=== PATIENT | female | born 1995 | race Caucasian/White ===

== ENCOUNTER 2020-10-16 18:07 | Emergency (ER) | payer OTHER ==
[2020-10-16 18:14] VITALS: BP 112/60
[2020-10-16 18:28] LABS: HCG UR QUAL NEGATIVE
--- NOTE | 2020-10-16 18:58 | ED Physician Documentation ---
History of Present Illness - Stated complaint Stated Complaint: FEMALE - Chief complaint Chief Complaint: General - History obtained from History obtained from: Patient - History of Present Illness Timing: Today Pain level max: 0 Pain level now: 0 - Additonal information Additional information: 25-year-old female presents to the emergency department stating she had unprotected sexual intercourse 4 days ago. She states that she is here to have an IUD placed to prevent . She states she does not want to take Plan B because of the hormones. She states she is breast-feeding a child. Not currently on any control. 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 She states that she called the [facility] primary care clinic and was directed to the emergency department. Review of Systems Constitutional: denies: Fever GI: denies: Vomiting Skin: denies: Rash Musculoskeletal: denies: Neck pain, Back pain Neurologic: denies: Headache PD PAST MEDICAL HISTORY - Past Medical History Past Medical History: Yes Respiratory: Asthma - Past Surgical History Past Surgical History: Yes HEENT: Rhinoplasty - Present Medications Home Medications: Ambulatory Orders Medication Instructions Recorded Confirmed No Known Home Medications 10/16/20 10/16/20 - Allergies Allergies/Adverse Reactions: Allergies Allergy/AdvReac Type Severity Reaction Status Date / Time ibuprofen Allergy Anaphylaxis Verified 10/16/20 18:14 - Social History Does the pt smoke?: No Smoking Status: Never smoker Does the pt drink ETOH?: No Does the pt have substance abuse?: No - Immunizations Immunizations are current?: Yes PD ED PE NORMAL - Vitals Vital signs reviewed: Yes - General General: Alert and oriented X 3, No acute distress - HEENT HEENT: Moist mucous membranes - Respiratory Respiratory: No respiratory distress - Derm Derm: Warm and dry - Neuro Neuro: Alert and oriented X 3 - Psych Psych: Normal mood, Normal affect Results - Vitals Vitals: Vital Signs - 24 hr 10/16/20 18:12 Temperature 37 C Heart Rate 75 Respiratory 18 Rate Blood Pressure 112/60 O2 Saturation 98 Oxygen O2 Source Room air - Labs Labs: Laboratory Tests 10/16/20 18:19 Urine HCG, Qual NEGATIVE PD MEDICAL DECISION MAKING - ED course Complexity details: considered differential, d/w patient, d/w x ray consultant ED course: Patient informed that we do not place intrauterine devices in the emergency department. Recommend that she follow-up with gynecology. I did contact gynecology on-call to see if they could see her quickly, Dr. Howe Recommends calling the clinic in the morning to see if they can squeeze her in tomorrow. Patient counseled regarding signs and symptoms for which I believe and urgent re-evaluation would be necessary. Patient with good understanding of and agreement to plan and is comfortable going home at this time This document was made in part using voice recognition software. While efforts are made to proofread this document, sound alike and grammatical errors may occur. Departure - Departure Disposition: 01 Home, Self Care Clinical Impression: Encounter for medical screening examination Condition: Good Instructions: ED Screening Exam Medical Nonurgent Follow-Up: Tarun Howe MD [Provider Admit Priv/Credential] - Tarun Howe MD [Provider Admit Priv/Credential] - Comments: I spoke with Dr. Carley calix. He said you can call the clinic in the morning and see if they can fit you in for the paragard IUD. This can be with any provider at the gynecology clinic Discharge Date/Time: 10/16/20 19:06
== END 2020-10-16 19:06 | disposition home or self-care (01) ==
LOC: ED 18:07
DX: Z30.8 Encounter for other contraceptive management (principal)
CPT/HCPCS: 36415; 81025; 99282; 99283

== ENCOUNTER 2021-10-23 19:05 | Emergency (ER) | payer MEDICAID, OTHER ==
--- NOTE | 2021-10-23 21:13 | ED Physician Documentation ---
History of Present Illness - Stated complaint Stated Complaint: ASTHMA/MEDICATION REFILL - Chief complaint Chief Complaint: Resp - Additonal information Additional information: 26-year-old female presents emergency department requesting a refill of her asthma inhaler. She called the nurse hotline who told her to come to the ER. She is here with her [id number] son who has fevers and vomiting. Review of Systems Constitutional: reports: Reviewed and negative Nose: reports: Reviewed and negative Throat: reports: Reviewed and negative Cardiac: reports: Reviewed and negative Respiratory: reports: Reviewed and negative GI: reports: Reviewed and negative : reports: Reviewed and negative Skin: reports: Reviewed and negative PD PAST MEDICAL HISTORY - Past Medical History Respiratory: Asthma - Past Surgical History Past Surgical History: Yes HEENT: Rhinoplasty - Present Medications Home Medications: Ambulatory Orders Medication Instructions Recorded Confirmed Albuterol Sulf [Ventolin Hfa 1 - 2 puffs INH Q4HR PRN #1 inhaler 10/23/21 Inhaler] - Allergies Allergies/Adverse Reactions: Allergies Allergy/AdvReac Type Severity Reaction Status Date / Time ibuprofen Allergy Anaphylaxis Verified 10/23/21 19:29 - Social History Does the pt smoke?: No Smoking Status: Never smoker Does the pt drink ETOH?: No Does the pt have substance abuse?: No - Immunizations Immunizations are current?: Yes PD ED PE NORMAL - General General: Alert and oriented X 3, No acute distress - HEENT HEENT: PERRL - Cardiac Cardiac: RRR, No murmur - Respiratory Respiratory: No respiratory distress, Clear bilaterally - Abdomen Abdomen: Normal bowel sounds, Soft, Non tender, Non distended - Back Back: No CVA TTP - Derm Derm: Normal color, Warm and dry - Extremities Extremities: No deformity, No tenderness to palpate, Normal ROM s pain - Neuro Neuro: Alert and oriented X 3, 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 This was sent to the [facility] in [place]. She has no respiratory symptoms at this time. Departure - Departure Disposition: 01 Home, Self Care Clinical Impression: Medication refill Condition: Stable Record reviewed to determine appropriate education?: Yes Prescriptions: Albuterol Sulf [Ventolin Hfa Inhaler] 1 - 2 puffs INH Q4HR PRN #1 inhaler PRN Reason: Shortness Of Air/Wheezing Comments: Elaine, your albuterol was refilled and sent to the [facility] in [place].
[2021-10-23 23:19] VITALS: BP 119/76
== END 2021-10-23 23:21 | disposition home or self-care (01) ==
LOC: ED 19:05
DX: Z76.0 Encounter for issue of repeat prescription (principal)
CPT/HCPCS: 99281

== ENCOUNTER 2021-11-09 08:00 | Outpatient (CLI) | payer OTHER, MEDICAID ==
[2021-11-09 21:00] LABS: BASOPHILS % (AUTO) 0.4 %; EOSINOPHILS # (AUTO) 0.2 10^3/uL (0.0-0.7); EOSINOPHILS % (AUTO) 2.2 %; HCT - HEMATOCRIT 39.1 % (37.0-47.0); HGB - HEMOGLOBIN 12.8 g/dL (12.0-16.0); LYMPHOCYTES # (AUTO) 2.3 10^3/uL (1.5-3.5); LYMPHOCYTES % (AUTO) 33.7 %; MEAN CORPUSCULAR HEMOGLOBIN 30.5 pg (27.0-31.0); MEAN CORPUSCULAR HGB CONC 32.7 g/dL (32.0-36.0); MEAN CORPUSCULAR VOLUME 93.3 fL (81.0-99.0); MEAN PLATELET VOLUME 9.5 fL (7.9-10.8); MONOCYTES # (AUTO) 0.4 10^3/uL (0.0-1.0); MONOCYTES % (AUTO) 6.4 %; NEUTROPHILS # (AUTO) 3.9 10^3/uL (1.5-6.6); NEUTROPHILS % (AUTO) 57.2 %; PLT - PLATELET COUNT 233 10^3/uL (130-450); RED BLOOD COUNT 4.19 10^6/uL (4.20-5.40); WHITE BLOOD COUNT 6.8 x10^3/uL (4.8-10.8)
[2021-11-09 21:18] LABS: ALBUMIN 4.5 g/dL (3.2-5.5); ALBUMIN/GLOBULIN RATIO 1.4 (1.0-2.2); ALKALINE PHOSPHATASE 60 IU/L (42-121); ALT ALANINE AMINOTRANSFERASE 16 IU/L (10-60); AST ASPARTATE AMINOTRANSFERASE 19 IU/L (10-42); BILIRUBIN,TOTAL 0.7 mg/dL (0.2-1.0); BUN - BLOOD UREA NITROGEN 16 mg/dL (6-20); CALCIUM 8.6 mg/dL (8.5-10.3); CARBON DIOXIDE - CO2 29 mmol/L (21-32); CHLORIDE 99 mmol/L (101-111); CHOLESTEROL 170 mg/dL; CREATININE 0.5 mg/dL (0.4-1.0); GFR - MDRD 147 (>89); GLUCOSE 103 mg/dL (70-100); HDL CHOLESTEROL 87 mg/dL; SODIUM 135 mmol/L (135-145); TOTAL PROTEIN 7.7 g/dL (6.7-8.2); TRIGLYCERIDES 39 mg/dL
[2021-11-09 21:29] LABS: THYROID STIMULATING HORMONE 1.28 uIU/mL (0.34-5.60)
== END 2021-11-09 23:59 | disposition home or self-care (01) ==
LOC: LAB.N 08:00
PROVIDERS: ATTEND Family Medicine
DX: R53.83 Other fatigue (principal)
CPT/HCPCS: 36415; 80053; 80061; 82306; 83721; 84443; 85025

== ENCOUNTER 2022-02-06 06:49 | Outpatient (CLI) | payer OTHER | END 2022-02-06 06:50 | disposition EMS.NT | LOC: EMS 06:49 | DX: R10.9 Unspecified abdominal pain (principal); R11.2 Nausea with vomiting, unspecified ==

== ENCOUNTER 2022-02-06 08:11 | Emergency (ER) | payer MEDICAID, OTHER ==
[2022-02-06] MEDS ORDERED: ONDANSETRON ODT 4 MG TABLET TL STA (08:31)
[2022-02-06 08:45] LABS: BASOPHILS % (AUTO) 0.3 %; EOSINOPHILS % (AUTO) 0.3 %; HCT - HEMATOCRIT 39.7 % (37.0-47.0); LYMPHOCYTES # (AUTO) 0.5 10^3/uL (1.5-3.5); LYMPHOCYTES % (AUTO) 4.6 %; MEAN CORPUSCULAR HEMOGLOBIN 29.7 pg (27.0-31.0); MEAN CORPUSCULAR HGB CONC 32.7 g/dL (32.0-36.0); MEAN CORPUSCULAR VOLUME 90.8 fL (81.0-99.0); MEAN PLATELET VOLUME 8.7 fL (7.9-10.8); MONOCYTES # (AUTO) 0.4 10^3/uL (0.0-1.0); MONOCYTES % (AUTO) 4.2 %; NEUTROPHILS # (AUTO) 9.1 10^3/uL (1.5-6.6); NEUTROPHILS % (AUTO) 90.4 %; PLT - PLATELET COUNT 197 10^3/uL (130-450); RED BLOOD COUNT 4.37 10^6/uL (4.20-5.40); RED CELL DISTRIBUTION WIDTH 12.3 % (12.0-15.0); WHITE BLOOD COUNT 10.1 x10^3/uL (4.8-10.8)
[2022-02-06 08:59] LABS: ALBUMIN 4.6 g/dL (3.2-5.5); ALBUMIN/GLOBULIN RATIO 1.2 (1.0-2.2); BILIRUBIN,TOTAL 1.1 mg/dL (0.2-1.0); CALCIUM 8.4 mg/dL (8.5-10.3); CREATININE 0.6 mg/dL (0.4-1.0); POTASSIUM 3.7 mmol/L (3.5-5.0); TOTAL PROTEIN 8.4 g/dL (6.7-8.2)
[2022-02-06 09:10] LABS: BILIRUBIN,URINE NEGATIVE (NEGATIVE); GLUCOSE, URINE (UA) NEGATIVE (NEGATIVE); KETONES,URINE (UA) >=80 mg/dL (NEGATIVE); LEUKOCYTE ESTERASE, URINE NEGATIVE (NEGATIVE); NITRITE,URINE NEGATIVE (NEGATIVE); OCCULT BLOOD,URINE NEGATIVE (NEGATIVE); PH,URINE 6.5 PH (5.0-7.5); PROTEIN,URINE 30 mg/dL (NEGATIVE); UROBILINOGEN,URINE 0.2 (NORMAL) E.U./dL (NORMAL)
[2022-02-06 09:17] LABS: CLARITY,URINE CLEAR (CLEAR)
[2022-02-06 09:18] LABS: HCG UR QUAL NEGATIVE
[2022-02-06 09:21] LABS: BACTERIA,URINE Few /HPF (None Seen); RBC,URINE 0-5 /HPF (0-5); SQUAMOUS EPITHELIAL CELL,UR FEW Squamous (<= Few); WBC,URINE 0-3 /HPF (0-5)
--- NOTE | 2022-02-06 10:14 | ED Physician Documentation ---
PD HPI NVD - Stated complaint Stated Complaint: VOMITING - Chief complaint Chief Complaint: Abd Pain - History obtained from History obtained from: Patient - History of Present Illness Timing - onset: Last night, Yesterday Timing - duration: Days (1) Timing - details: Abrupt onset, Still present Associated symptoms: Abdominal pain (diffuse cramping intermittent pains with vomiting episodes.). No: Fever Contributing factors: Sick contact (her son with vomiting and diarrhea started 2 days ago, and is moderately improved. with same symptoms since overnight as well.) Improved by: No: Vomiting (having forceful heaving emesis.) Worsened by: Eating Similar symptoms before: Has not had sx before Recently seen: Not recently seen Review of Systems Constitutional: denies: Fever, Chills Nose: denies: Rhinorrhea / runny nose, Congestion Throat: denies: Sore throat Respiratory: denies: Cough GI: reports: Abdominal Pain (cramping around time of emesis, not constant.), Nausea, Vomiting. denies: Diarrhea, Hematemesis Neurologic: reports: Generalized weakness. denies: Near syncope PD PAST MEDICAL HISTORY - Past Medical History Respiratory: Asthma - Past Surgical History Past Surgical History: Yes HEENT: Rhinoplasty - Present Medications Home Medications: Ambulatory Orders Medication Instructions Recorded Confirmed Albuterol Sulf [Ventolin Hfa 1 - 2 puffs INH Q4HR PRN #1 inhaler 10/23/21 Inhaler] Beclomethasone 80 Mcg [Qvar 80] 2 puffs INH BID 10/25/21 10/25/21 Beclomethasone 80 Mcg [Qvar 80] 100 puffs INH BID #1 unit 10/25/21 Loperamide HCl [Imodium A-D] 2 mg PO Q6H PRN #12 tablet 02/06/22 Ondansetron Odt [Zofran] 4 mg TL Q6H PRN #10 tablet 02/06/22 Promethazine Supp [Phenergan Supp] 25 mg AR Q6H PRN #8 supp 02/06/22 Promethazine [Phenergan] 25 mg PO Q6H PRN #10 tab 02/06/22 - Allergies Allergies/Adverse Reactions: Allergies Allergy/AdvReac Type Severity Reaction Status Date / Time ibuprofen Allergy Anaphylaxis Verified 02/06/22 08:29 - Social History Does the pt smoke?: No Smoking Status: Never smoker Does the pt drink ETOH?: No Does the pt have substance abuse?: No - Immunizations Immunizations are current?: Yes PD ED PE NORMAL - Vitals Vital signs reviewed: Yes - General General: Alert and oriented X 3, No acute distress, Well developed/nourished - Neck Neck: Supple, no meningeal sign, No adenopathy - Cardiac Cardiac: RRR, No murmur - Respiratory Respiratory: Clear bilaterally - Abdomen Abdomen: Normal bowel sounds, Soft, Non distended, Other (Minimally tender in the epigastric area with out guarding or percussion tenderness.) - Derm Derm: Normal color, Warm and dry - Neuro Neuro: Alert and oriented X 3, No motor deficit, Normal speech Results - Vitals Vitals: Vital Signs - 24 hr 02/06/22 12:54 Temperature 36.6 C Heart Rate 104 H Respiratory 17 Rate Blood Pressure 110/58 L O2 Saturation 100 Oxygen O2 Source Room air - Labs Labs: Laboratory Tests 02/06/22 02/06/22 02/06/22 08:45 08:45 08:46 WBC 10.1 RBC 4.37 Hgb 13.0 Hct 39.7 MCV 90.8 MCH 29.7 MCHC 32.7 RDW 12.3 Plt Count 197 MPV 8.7 Neut # (Auto) 9.1 H Lymph # (Auto) 0.5 L [place] # (Auto) 0.4 Eos # (Auto) 0.0 Baso # (Auto) 0.0 Absolute Nucleated RBC 0.00 Nucleated RBC % 0.0 Sodium 138 Potassium 3.7 Chloride 101 Carbon Dioxide 25 Anion Gap 12.0 BUN 20 Creatinine 0.6 Estimated GFR (MDRD) 119 Glucose 126 H Calcium 8.4 L Total Bilirubin 1.1 H AST 25 ALT 20 Alkaline Phosphatase 62 Total Protein 8.4 H Albumin 4.6 Globulin 3.8 Albumin/Globulin Ratio 1.2 Lipase 35 Urine Color YELLOW Urine Clarity CLEAR Urine pH 6.5 Ur Specific [place] 1.025 Urine Protein 30 H Urine Glucose (UA) NEGATIVE Urine Ketones >=80 H Urine Occult Blood NEGATIVE Urine Nitrite NEGATIVE Urine Bilirubin NEGATIVE Urine Urobilinogen 0.2 (NORMAL) Ur Leukocyte Esterase NEGATIVE Urine RBC 0-5 Urine WBC 0-3 Ur Squamous Epith Cells FEW Squamous Urine Bacteria Few Ur Microscopic Review INDICATED Urine Culture Comments NOT INDICATED Urine HCG, Qual NEGATIVE PD MEDICAL DECISION MAKING - ED course Complexity details: re-evaluated patient (She is not having further emesis here. Abdomen is nonfocal he tender with just some in the epigastric. She is able to take sips of fluids here in the ER. Does not seem to need IV fluids.), considered differential (Nausea and vomiting without much diarrhea as yet. Her son had similar symptoms started in 3 days ago. with similar. Presumed viral gastroenteritis.), d/w patient Departure - Departure Disposition: 01 Home, Self Care Clinical Impression: Nausea vomiting and diarrhea Condition: Stable Record reviewed to determine appropriate education?: Yes Instructions: ED Gastroenteritis Viral Prescriptions: Loperamide HCl [Imodium A-D] 2 mg PO Q6H PRN #12 tablet PRN Reason: Diarrhea Promethazine [Phenergan] 25 mg PO Q6H PRN #10 tab PRN Reason: Nausea / Vomiting Promethazine Supp [Phenergan Supp] 25 mg AR Q6H PRN #8 supp PRN Reason: Nausea / Vomiting Ondansetron Odt [Zofran] 4 mg TL Q6H PRN #10 tablet PRN Reason: Nausea / Vomiting Comments: Small frequent fluids and bland food initially. Starches such as rice and pastas are easily absorbed and digested. Zofran if needed for nausea. If that does not work then promethazine either tablet or suppository to help with the vomiting. You likely will develop some diarrhea and you could use Imodium if needed for that. Tylenol every 4-6 hours if needed for fevers or pains. This is most likely a viral illness and commonly will last for 2 to 3 days and then improved. I transmitted your prescriptions to [facility] pharmacy in [place]. Discharge Date/Time: 02/06/22 12:58
[2022-02-06] MEDS ORDERED: PROMETHAZINE 25 MG/1 ML VIAL IM STA (11:27)
[2022-02-06] MEDS ORDERED: ACETAMINOPHEN 325 MG TABLET PO STA (11:28)
[2022-02-06 12:55] VITALS: BP 110/58
== END 2022-02-06 12:58 | disposition home or self-care (01) ==
LOC: ED 08:11
DX: R11.2 Nausea with vomiting, unspecified (principal); R19.7 Diarrhea, unspecified
CPT/HCPCS: 36415; 80053; 81001; 81025; 83690; 85025; 99282; 99283; A9270; Q0162; 81003; 87086

== ENCOUNTER 2022-04-12 18:12 | Outpatient (CLI) | payer OTHER ==
[2022-04-12 21:07] LABS: BASOPHILS # (AUTO) 0.1 10^3/uL (0.0-0.1); BASOPHILS % (AUTO) 0.8 %; EOSINOPHILS # (AUTO) 0.3 10^3/uL (0.0-0.7); EOSINOPHILS % (AUTO) 4.8 %; HCT - HEMATOCRIT 35.6 % (37.0-47.0); HGB - HEMOGLOBIN 11.7 g/dL (12.0-16.0); LYMPHOCYTES # (AUTO) 2.6 10^3/uL (1.5-3.5); LYMPHOCYTES % (AUTO) 41.1 %; MEAN CORPUSCULAR HEMOGLOBIN 29.5 pg (27.0-31.0); MEAN CORPUSCULAR HGB CONC 32.9 g/dL (32.0-36.0); MEAN CORPUSCULAR VOLUME 89.9 fL (81.0-99.0); MEAN PLATELET VOLUME 9.6 fL (7.9-10.8); MONOCYTES # (AUTO) 0.4 10^3/uL (0.0-1.0); MONOCYTES % (AUTO) 5.8 %; NEUTROPHILS # (AUTO) 2.9 10^3/uL (1.5-6.6); NEUTROPHILS % (AUTO) 47.3 %; PLT - PLATELET COUNT 216 10^3/uL (130-450); RED BLOOD COUNT 3.96 10^6/uL (4.20-5.40); RED CELL DISTRIBUTION WIDTH 12.9 % (12.0-15.0); WHITE BLOOD COUNT 6.2 x10^3/uL (4.8-10.8)
[2022-04-12 21:30] LABS: ALBUMIN 4.3 g/dL (3.2-5.5); ALBUMIN/GLOBULIN RATIO 1.3 (1.0-2.2); BILIRUBIN,TOTAL 0.6 mg/dL (0.2-1.0); CALCIUM 9.1 mg/dL (8.5-10.3); CREATININE 0.6 mg/dL (0.4-1.0); TOTAL PROTEIN 7.5 g/dL (6.7-8.2)
[2022-04-12 21:45] LABS: T4 (THYROXINE) 5.96 ug/dL (6.09-12.23)
[2022-04-12 21:48] LABS: THYROID STIMULATING HORMONE 1.08 uIU/mL (0.34-5.60)
[2022-04-12 21:49] LABS: FREE T3 3.02 pg/mL (2.5-3.9)
[2022-04-12 21:50] LABS: FREE T4 (FREE THYROXINE) 0.95 ng/dL (0.58-1.64)
== END 2022-04-12 18:13 | disposition home or self-care (01) ==
LOC: LAB.N 18:12
PROVIDERS: ATTEND Nurse Practitioner
DX: E05.00 Thyrotoxicosis with diffuse goiter without thyrotoxic crisis or storm (principal)
CPT/HCPCS: 36415; 80053; 81599; 84436; 84439; 84443; 84481; 85025; 86800

== ENCOUNTER 2022-08-12 14:43 | Emergency (ER) | payer OTHER ==
--- NOTE | 2022-08-12 15:11 | XRAY Report ---
PROCEDURE: Chest 1 View X-Ray INDICATIONS: Chest pain TECHNIQUE: One view of the chest was acquired. COMPARISON: None. FINDINGS: Surgical changes and devices: None. Lungs and pleura: No pleural effusions or pneumothorax. Lungs are clear. Mediastinum: Mediastinal contours appear normal. Heart size is normal. Bones and chest wall: No suspicious bony lesions. Overlying soft tissues appear unremarkable. IMPRESSION: No evidence acute pulmonary process. Reviewed by: Geovanni Lopez MD on 08/12/2022 3:10 PM PST Approved by: Geovanni Lopez MD on 08/12/2022 3:10 PM PST Station ID: [id number]
[2022-08-12 15:12] LABS: BASOPHILS # (AUTO) 0.1 10^3/uL (0.0-0.1); BASOPHILS % (AUTO) 0.7 %; EOSINOPHILS # (AUTO) 0.2 10^3/uL (0.0-0.7); EOSINOPHILS % (AUTO) 2.3 %; HCT - HEMATOCRIT 36.8 % (37.0-47.0); HGB - HEMOGLOBIN 11.6 g/dL (12.0-16.0); LYMPHOCYTES # (AUTO) 2.1 10^3/uL (1.5-3.5); LYMPHOCYTES % (AUTO) 29.1 %; MEAN CORPUSCULAR HEMOGLOBIN 27.6 pg (27.0-31.0); MEAN CORPUSCULAR HGB CONC 31.5 g/dL (32.0-36.0); MEAN CORPUSCULAR VOLUME 87.4 fL (81.0-99.0); MEAN PLATELET VOLUME 8.8 fL (7.9-10.8); MONOCYTES # (AUTO) 0.5 10^3/uL (0.0-1.0); NEUTROPHILS # (AUTO) 4.4 10^3/uL (1.5-6.6); NEUTROPHILS % (AUTO) 60.8 %; PLT - PLATELET COUNT 226 10^3/uL (130-450); RED BLOOD COUNT 4.21 10^6/uL (4.20-5.40); RED CELL DISTRIBUTION WIDTH 13.2 % (12.0-15.0); WHITE BLOOD COUNT 7.3 x10^3/uL (4.8-10.8)
[2022-08-12 15:30] LABS: ALBUMIN 4.2 g/dL (3.2-5.5); ALBUMIN/GLOBULIN RATIO 1.1 (1.0-2.2); BILIRUBIN,TOTAL 0.5 mg/dL (0.2-1.0); CALCIUM 8.9 mg/dL (8.5-10.3); CREATININE 0.5 mg/dL (0.4-1.0); POTASSIUM 3.9 mmol/L (3.5-5.0)
[2022-08-12 17:14] VITALS: BP 111/43
[2022-08-12] MEDS ORDERED: MELOXICAM 7.5 MG TABLET PO STA (17:33)
--- NOTE | 2022-08-12 17:36 | ED Physician Documentation ---
History of Present Illness - Stated complaint Stated Complaint: JAW/NECK/CHEST PX - Chief complaint Chief Complaint: Cardiac - History obtained from History obtained from: Patient - History of Present Illness Timing: How many days ago (4) Pain level max: 3 Pain level now: 2 - Additonal information Additional information: Patient states that she had an argument with her about 4 days ago. She states after the argument she had left-sided chest pain to the left arm and left neck. She states that the pain has gradually resolved over the last 2 days. She states that she still has some left-sided neck pain under the jaw. She is taking Tylenol without relief. She feels like there might be some swelling. No skin changes. Nothing seems to make it better or worse. No fevers. No chills. No neck or back pain. She states that the left-sided chest pain was sharp. She states she feels like her body was under too much stress. Review of Systems Constitutional: denies: Fever, Chills GI: denies: Vomiting, Diarrhea Skin: denies: Rash Musculoskeletal: denies: Neck pain, Back pain Neurologic: denies: Headache PD PAST MEDICAL HISTORY - Past Medical History Past Medical History: Yes Respiratory: Asthma Endocrine/Autoimmune: Other - Past Surgical History Past Surgical History: Yes HEENT: Rhinoplasty - Present Medications Home Medications: Ambulatory Orders Medication Instructions Recorded Confirmed Albuterol Sulf [Ventolin Hfa 1 - 2 puffs INH Q4HR PRN #1 inhaler 10/23/21 Inhaler] Beclomethasone 80 Mcg [Qvar 80] 2 puffs INH BID 10/25/21 10/25/21 Beclomethasone 80 Mcg [Qvar 80] 100 puffs INH BID #1 unit 10/25/21 Loperamide HCl [Imodium A-D] 2 mg PO Q6H PRN #12 tablet 02/06/22 Ondansetron Odt [Zofran] 4 mg TL Q6H PRN #10 tablet 02/06/22 Promethazine Supp [Phenergan Supp] 25 mg [place] Q6H PRN #8 supp 02/06/22 Promethazine [Phenergan] 25 mg PO Q6H PRN #10 tab 02/06/22 - Allergies Allergies/Adverse Reactions: Allergies Allergy/AdvReac Type Severity Reaction Status Date / Time ibuprofen Allergy Anaphylaxis Verified 08/12/22 14:48 - Social History Does the pt smoke?: No Smoking Status: Never smoker Does the pt drink ETOH?: No Does the pt have substance abuse?: No - Immunizations Immunizations are current?: Yes PD ED PE NORMAL - Vitals Vital signs reviewed: Yes - General General: Alert and oriented X 3, No acute distress - HEENT HEENT: PERRL, Moist mucous membranes, Pharynx benign - Neck Neck: Supple, no meningeal sign, No adenopathy, Thyroid normal, No JVD, No bruit - Cardiac Cardiac: RRR, Strong equal pulses - Respiratory Respiratory: No respiratory distress, Clear bilaterally - Abdomen Abdomen: Soft, Non tender, Non distended - Derm Derm: Warm and dry - Extremities Extremities: No edema, No calf tenderness / cord - Neuro Neuro: Alert and oriented X 3 - Psych Psych: Normal mood, Normal affect Results - Vitals Vitals: Vital Signs - 24 hr 08/12/22 08/12/22 14:48 17:13 Temperature 36.5 C Heart Rate 78 88 Respiratory 16 16 Rate Blood Pressure 129/51 L 111/43 L O2 Saturation 100 100 Oxygen O2 Source Room air - EKG (time done) 1450 Rate: Rate (enter#) (76) Rhythm: NSR [place]: Normal Intervals: Normal TN QRS: Normal Ischemia: Normal ST segments - Labs Labs: Laboratory Tests 08/12/22 08/12/22 08/12/22 15:06 15:06 15:06 WBC 7.3 RBC 4.21 Hgb 11.6 L Hct 36.8 L MCV 87.4 MCH 27.6 MCHC 31.5 L RDW 13.2 Plt Count 226 MPV 8.8 Neut # (Auto) 4.4 Lymph # (Auto) 2.1 [place] # (Auto) 0.5 Eos # (Auto) 0.2 Baso # (Auto) 0.1 Absolute Nucleated RBC 0.00 Nucleated RBC % 0.0 Sodium 135 Potassium 3.9 Chloride 102 Carbon Dioxide 27 Anion Gap 6.0 BUN 12 Creatinine 0.5 Estimated GFR (MDRD) 146 Glucose 97 Calcium 8.9 Total Bilirubin 0.5 AST 17 ALT 12 Alkaline Phosphatase 45 Troponin I High Sens < 2.3 L Total Protein 8.0 Albumin 4.2 Globulin 3.8 Albumin/Globulin Ratio 1.1 Lipase 46 TSH Free T4 08/12/22 15:09 WBC RBC Hgb Hct MCV MCH MCHC RDW Plt Count MPV Neut # (Auto) Lymph # (Auto) [place] # (Auto) Eos # (Auto) Baso # (Auto) Absolute Nucleated RBC Nucleated RBC % Sodium Potassium Chloride Carbon Dioxide Anion Gap BUN Creatinine Estimated GFR (MDRD) Glucose Calcium Total Bilirubin AST ALT Alkaline Phosphatase Troponin I High Sens Total Protein Albumin Globulin Albumin/Globulin Ratio Lipase TSH 2.79 Free T4 0.72 - Rads (name of study) cxr Radiology: Final report received, EMP read contemporaneously, See rad report (no acute abnormalities) PD MEDICAL DECISION MAKING - ED course Complexity details: reviewed results, re-evaluated patient, considered differential (No ST elevation NE, no aortic dissection, no PE, no tension pneumothorax, no aortic aneurysm), d/w patient ED course: 27-year-old female complains of chest pain after an argument with her several days ago. The chest pain is since resolved. No acute findings on EKG, laboratory testing, chest x-ray. Also complains of neck pain, left-sided submandibular. Normal intraoral exam. Normal external examination of the neck. Offered a soft tissue CT of the neck to evaluate for any masses, cyst, abscess, or tumors. Patient refuses this. Patient would like to try pain medicine at home for a few days, she states that she can take Motrin and Tylenol. She will follow-up with her doctor if it fails to improve. Patient counseled regarding signs and symptoms for which I believe and urgent re- evaluation would be necessary. Patient with good understanding of and agreement to plan and is comfortable going home at this time This document was made in part using voice recognition software. While efforts are made to proofread this document, sound alike and grammatical errors may occur. There is no visible swelling to the neck or face. No lymphadenopathy. Departure - Departure Disposition: 01 Home, Self Care Clinical Impression: Atypical chest pain, Neck pain Condition: Good Instructions: ED Chest Pain Atypical Unkn Cause, ED Neck Pain No Trauma Follow-Up: Your,doctor in 1 week [Other] Comments: Please follow-up with your doctor for further care. The cause of your symptoms today is unclear. It was recommended that you have a CT scan of your neck, you have declined this. Please follow-up with your doctor for further testing. Would recommend a CT soft tissue neck with contrast if your symptoms progress or do not improve as expected. Discharge Date/Time: 08/12/22 17:49
[2022-08-12 17:54] LABS: THYROID STIMULATING HORMONE 2.79 uIU/mL (0.34-5.60)
[2022-08-12 17:56] LABS: FREE T4 (FREE THYROXINE) 0.72 ng/dL (0.58-1.64)
== END 2022-08-12 17:49 | disposition home or self-care (01) ==
LOC: ED 14:43
DX: R07.89 Other chest pain (principal); M54.2 Cervicalgia
CPT/HCPCS: 36415; 71045; 80053; 83690; 84439; 84443; 84484; 85025; 93005; 99284; A9270

== ENCOUNTER 2022-11-14 08:00 | Outpatient (CLI) | payer OTHER ==
[2022-11-15 11:10] LABS: HSV 1 IGG TYPE SPEC <0.91 index (0.00-0.90); HSV 2 IGG TYPE SPEC <0.91 index (0.00-0.90)
== END 2022-11-14 23:59 | disposition home or self-care (01) ==
LOC: LAB.N 08:00
PROVIDERS: ATTEND Family Medicine
DX: K13.0 Diseases of lips (principal)
CPT/HCPCS: 36415; 86695; 86696

== ENCOUNTER 2023-04-30 08:59 | Emergency (ER) | payer OTHER ==
[2023-04-30 09:35] LABS: BILIRUBIN,URINE NEGATIVE (NEGATIVE); GLUCOSE, URINE (UA) NEGATIVE (NEGATIVE); KETONES,URINE (UA) TRACE mg/dL (NEGATIVE); LEUKOCYTE ESTERASE, URINE NEGATIVE (NEGATIVE); NITRITE,URINE NEGATIVE (NEGATIVE); OCCULT BLOOD,URINE MODERATE (NEGATIVE); PH,URINE 5.5 PH (5.0-7.5); PROTEIN,URINE NEGATIVE (NEGATIVE); UROBILINOGEN,URINE 0.2 (NORMAL) E.U./dL (NORMAL)
[2023-04-30 09:35] LABS: BASOPHILS # (AUTO) 0.1 10^3/uL (0.0-0.1); EOSINOPHILS # (AUTO) 0.1 10^3/uL (0.0-0.7); EOSINOPHILS % (AUTO) 2.5 %; HCT - HEMATOCRIT 33.5 % (37.0-47.0); HGB - HEMOGLOBIN 10.2 g/dL (12.0-16.0); LYMPHOCYTES # (AUTO) 2.1 10^3/uL (1.5-3.5); LYMPHOCYTES % (AUTO) 39.7 %; MEAN CORPUSCULAR HEMOGLOBIN 24.6 pg (27.0-31.0); MEAN CORPUSCULAR HGB CONC 30.4 g/dL (32.0-36.0); MEAN CORPUSCULAR VOLUME 80.9 fL (81.0-99.0); MONOCYTES # (AUTO) 0.4 10^3/uL (0.0-1.0); MONOCYTES % (AUTO) 8.1 %; NEUTROPHILS # (AUTO) 2.5 10^3/uL (1.5-6.6); NEUTROPHILS % (AUTO) 48.5 %; PLT - PLATELET COUNT 204 10^3/uL (130-450); RED BLOOD COUNT 4.14 10^6/uL (4.20-5.40); RED CELL DISTRIBUTION WIDTH 14.2 % (12.0-15.0); WHITE BLOOD COUNT 5.2 x10^3/uL (4.8-10.8)
[2023-04-30 09:38] LABS: CLARITY,URINE CLEAR (CLEAR); HCG UR QUAL NEGATIVE
[2023-04-30 09:47] LABS: BACTERIA,URINE Few /HPF (None Seen); RBC,URINE 0-5 /HPF (0-5); SQUAMOUS EPITHELIAL CELL,UR MOD Squamous (<= Few); WBC,URINE 0-3 /HPF (0-5)
[2023-04-30 09:57] LABS: ALBUMIN 4.4 g/dL (3.2-5.5); ALBUMIN/GLOBULIN RATIO 1.4 (1.0-2.2); BILIRUBIN,TOTAL 0.5 mg/dL (0.2-1.0); CALCIUM 9.1 mg/dL (8.5-10.3); CREATININE 0.6 mg/dL (0.6-1.3); POTASSIUM 3.5 mmol/L (3.5-4.5); TOTAL PROTEIN 7.6 g/dL (6.4-8.9)
--- NOTE | 2023-04-30 10:26 | ED Physician Documentation ---
PD HPI FEMALE - Stated complaint Stated Complaint: LT ABD PX - Chief complaint Chief Complaint: Abd Pain - History obtained from History obtained from: Patient - History of Present Illness Timing - onset: How many days ago (5) Timing - duration: Days (5) Timing - details: Gradual onset, Still present, Waxing and waning Associated symptoms: Pelvic pain (left lower abd/suprapubic area. Has had some vaginal brown discharge/bleeding, no dysuria, and normal BMs.), Vaginal discharge (brownish small amount without malodor.). No: Fever, Vaginal bleeding Contributing factors: IUD OB-MANAGER MANAGEMENT History: Prior vag delivery Similar symptoms before: Has not had sx before Recently seen: Not recently seen Review of Systems Constitutional: denies: Fever, Chills, Myalgias : reports: Discharge (mild brownish). denies: Dysuria, Frequency, Vaginal bleeding Skin: denies: Rash, Lesions PD PAST MEDICAL HISTORY - Past Medical History Respiratory: Asthma Endocrine/Autoimmune: Other - Past Surgical History Past Surgical History: Yes HEENT: Rhinoplasty - Present Medications Home Medications: Ambulatory Orders Medication Instructions Recorded Confirmed Albuterol Sulf [Ventolin Hfa 1 - 2 puffs INH Q4HR PRN #1 inhaler 10/23/21 Inhaler] Beclomethasone 80 Mcg [Qvar 80] 2 puffs INH BID 10/25/21 10/25/21 Beclomethasone 80 Mcg [Qvar 80] 100 puffs INH BID #1 unit 10/25/21 Loperamide HCl [Imodium A-D] 2 mg PO Q6H PRN #12 tablet 02/06/22 Ondansetron Odt [Zofran] 4 mg TL Q6H PRN #10 tablet 02/06/22 Promethazine Supp [Phenergan Supp] 25 mg DC Q6H PRN #8 supp 02/06/22 Promethazine [Phenergan] 25 mg PO Q6H PRN #10 tab 02/06/22 - Allergies Allergies/Adverse Reactions: Allergies Allergy/AdvReac Type Severity Reaction Status Date / Time ibuprofen Allergy Anaphylaxis Verified 04/30/23 09:19 - Social History Does the pt smoke?: No Smoking Status: Never smoker Does the pt drink ETOH?: No Does the pt have substance abuse?: No - Immunizations Immunizations are current?: Yes PD ED PE NORMAL - Vitals Vital signs reviewed: Yes - General General: Alert and oriented X 3, No acute distress, Well developed/nourished - Cardiac Cardiac: RRR, No murmur - Respiratory Respiratory: Clear bilaterally - Abdomen Abdomen: Normal bowel sounds, Soft, Non distended, No organomegaly, Other (tender LLQ just suprapubic with mild local guarding but no perrcussion nor rebound tenderness. No inguinal nodes nor hernia. ) - Female Female : Deferred (had her do self-swab for PCR test. ) - Derm Derm: Normal color, Warm and dry Results - Vitals Vitals: Vital Signs - 24 hr 04/30/23 04/30/23 04/30/23 09:16 11:19 11:22 Temperature 36.4 C L Heart Rate 78 72 75 Respiratory 16 16 18 Rate Blood Pressure 122/60 102/61 O2 Saturation 99 100 100 04/30/23 04/30/23 04/30/23 11:31 12:17 12:54 Temperature Heart Rate Respiratory 18 16 Rate Blood Pressure 102/46 L O2 Saturation 04/30/23 04/30/23 12:55 13:00 Temperature 36.5 C 36.5 C Heart Rate 70 68 Respiratory 16 Rate Blood Pressure 111/61 110/62 O2 Saturation 100 99 Oxygen O2 Source Room air - Labs Labs: Laboratory Tests 04/30/23 04/30/23 04/30/23 09:15 09:28 09:28 WBC 5.2 RBC 4.14 L Hgb 10.2 L Hct 33.5 L MCV 80.9 L MCH 24.6 L MCHC 30.4 L RDW 14.2 Plt Count 204 MPV 9.0 Neut # (Auto) 2.5 Lymph # (Auto) 2.1 [place] # (Auto) 0.4 Eos # (Auto) 0.1 Baso # (Auto) 0.1 Absolute Nucleated RBC 0.00 Nucleated RBC % 0.0 Sodium 135 Potassium 3.5 Chloride 103 Carbon Dioxide 28 Anion Gap 4.0 L BUN 10 Creatinine 0.6 Estimated GFR (MDRD) 118 Glucose 98 Calcium 9.1 Total Bilirubin 0.5 AST 12 ALT 7 L Alkaline Phosphatase 36 L Total Protein 7.6 Albumin 4.4 Globulin 3.2 Albumin/Globulin Ratio 1.4 Lipase 30 Urine Color DARK YELLOW Urine Clarity CLEAR Urine pH 5.5 Ur Specific [place] >=1.030 H Urine Protein NEGATIVE Urine Glucose (UA) NEGATIVE Urine Ketones TRACE Urine Occult Blood MODERATE H Urine Nitrite NEGATIVE Urine Bilirubin NEGATIVE Urine Urobilinogen 0.2 (NORMAL) Ur Leukocyte Esterase NEGATIVE Urine RBC 0-5 Urine WBC 0-3 Ur Squamous Epith Cells MOD Squamous H Urine Bacteria Few Ur Microscopic Review INDICATED Urine Culture Comments NOT INDICATED Urine HCG, Qual NEGATIVE C. glabrata (PCR) C. krusei (PCR) Diann species DNA T. vaginalis (PCR) Bact Vaginosis (PCR) 04/30/23 12:05 WBC RBC Hgb Hct MCV MCH MCHC RDW Plt Count MPV Neut # (Auto) Lymph # (Auto) [place] # (Auto) Eos # (Auto) Baso # (Auto) Absolute Nucleated RBC Nucleated RBC % Sodium Potassium Chloride Carbon Dioxide Anion Gap BUN Creatinine Estimated GFR (MDRD) Glucose Calcium Total Bilirubin AST ALT Alkaline Phosphatase Total Protein Albumin Globulin Albumin/Globulin Ratio Lipase Urine Color Urine Clarity Urine pH Ur Specific [place] Urine Protein Urine Glucose (UA) Urine Ketones Urine Occult Blood Urine Nitrite Urine Bilirubin Urine Urobilinogen Ur Leukocyte Esterase Urine RBC Urine WBC Ur Squamous Epith Cells Urine Bacteria Ur Microscopic Review Urine Culture Comments Urine HCG, Qual C. glabrata (PCR) NEGATIVE C. krusei (PCR) NEGATIVE Diann species DNA NEGATIVE T. vaginalis (PCR) NEGATIVE Bact Vaginosis (PCR) NEGATIVE - Rads (name of study) pelvic US Relevant Findings:: Prelim report reviewed (uremarkable pelvic US. ), EMP independent interpretation of test, Other (per US tech: IUD in place. No cysts. normal flow in ovaries. ) PD Medical Decision Making - ED course Complexity details: reviewed results (US okay. UA normal. HCG negative. Vaginal PCR was pending at time of discharge (was still going to be awhile). ), considered differential (symptoms sound reproductive with no dysuria and normal BMs. Can get US to evaluate. ), d/w patient Reviewed Lab Results: I did call pt later in afternoon after PCR test resulted. I conveyed that it was negative. She will see her MANAGER MANAGEMENT and call for an appt. Departure - Departure Disposition: 01 Home, Self Care Clinical Impression: Acute pelvic pain, female Condition: Stable Record reviewed to determine appropriate education?: Yes Instructions: ED Pelvic Pain [facility] Follow-Up: [facility] [Provider Group] Comments: Your ultrasound appeared normal without any signs of cysts or tumors on the ovaries. Your IUD is in place and appears normal. There is good blood flow to the ovaries. At this point I presume some mild inflammation or pains from the ovary. Use Tylenol 500 to 650 mg 4 times a day to help with the pain. Stay well-hydrated. Follow-up with women's health if persisting symptoms. We do have a vaginal swab test pending. That should result later this afternoon. We will call you if we need to add any antibiotics or such based on that result. Forms: PCP List Discharge Date/Time: 04/30/23 13:00
--- NOTE | 2023-04-30 12:51 | Ultrasound Report ---
PROCEDURE: Pelvic w/Transvag+Doppler Comp INDICATIONS: pelvic pain, L TECHNIQUE: Real-time scanning was performed of the pelvic organs, with image documentation. Additional endovagi nal scanning was necessary due to incomplete visualization of the adnexal and endometrial structures by transabdominal scanning. Doppler interrogation was performed of the ovaries bilaterally. COMPARISON: None. FINDINGS: Uterus: Uterus is anteverted and normal in size at 9.7 x 4.1 x 5.4 cm. The myometrium is homogeneou s. The endometrium measures 12.9 mm in combined thickness. Intrauterine device in place Ovaries: The right ovary measures 3.5 x 1.9 x 2.1 cm, with a calculated ovarian volume of 7.5 cc. T he left ovary measures 4.0 x 1.9 x 1.6 cm, with a calculated ovarian volume of 6.5 cc. Appropriate b lood flow to the ovaries with Doppler interrogation. Less than 12 follicles can be seen in each ova ry. No adnexal masses are seen. No cystic lesions measuring greater than 3 cm. Other: No pathologic free abdominal or pelvic fluid. IMPRESSION: Unremarkable pelvic ultrasound Reviewed by: Joshua Klein MD on 04/30/2023 11:49 AM [facility] Approved by: Joshua Klein MD on 04/30/2023 11:49 AM [facility] Station ID: [id number]
[2023-04-30 13:02] VITALS: BP 110/62; O2SAT 99
[2023-04-30 14:48] LABS: BACTERIAL VAGINOSIS DNA NEGATIVE (NEGATIVE); CANDIDA GLABRATA DNA NEGATIVE (NEGATIVE); CANDIDA GROUP DNA NEGATIVE (NEGATIVE); CANDIDA KRUSEI DNA NEGATIVE (NEGATIVE); TRICHOMONAS VAGINALIS DNA NEGATIVE (NEGATIVE)
== END 2023-04-30 13:00 | disposition home or self-care (01) ==
LOC: ED 08:59
DX: R10.9 Unspecified abdominal pain (principal); Z97.5 Presence of (intrauterine) contraceptive device
CPT/HCPCS: 36415; 80053; 81001; 81003; 81025; 81514; 83690; 85025; 87086; 93975; 99283; 99284

== ENCOUNTER 2023-06-25 19:22 | Outpatient (CLI) | payer OTHER ==
--- NOTE | 2023-06-26 11:27 | Ultrasound Report ---
PROCEDURE: Pelvic Complete INDICATIONS: PELVIC PAIN TECHNIQUE: Real-time transabdominal scanning was performed of the pelvic organs, with image documentation. COMPARISON: Pelvic ultrasound 04/30/2023 FINDINGS: Patient refused transvaginal exam. Uterus: Uterus is anteverted and normal in size at 7.9 x 6 x 4 cm. The myometrium is homogeneous. The endometrium measures 8 mm in combined thickness. IUD centered in the endometrial cavity. Ovaries: The right ovary measures 3.4 x 3 x 2.6 cm, with a calculated ovarian volume of 14 cc. The left ovary measures 2.6 x 2.4 x 1.5 cm, with a calculated ovarian volume of 5 cc. The ovaries have a normal sonographic appearance. Less than 12 follicles can be seen in each ovary. No adnexal masses are seen. No cystic lesions measuring greater than 3 cm. Other: No free pelvic fluid. IMPRESSION: Source for pelvic pain is not identified. No significant ovarian cyst. IUD centered in the endometrial cavity. Reviewed by: Francisco J Lance MD on 06/26/2023 11:25 AM PDT Approved by: Francisco J Lance MD on 06/26/2023 11:25 AM PDT Station ID: [id number]
== END 2023-06-25 19:23 | disposition home or self-care (01) ==
LOC: DI 19:22
PROVIDERS: ATTEND Obstetrics & Gynecology
DX: R10.2 Pelvic and perineal pain (principal); Z97.5 Presence of (intrauterine) contraceptive device

== ENCOUNTER 2023-09-04 15:15 | Emergency (ER) | payer OTHER ==
--- NOTE | 2023-09-04 15:48 | ED Physician Documentation ---
PD HPI NVD - Stated complaint Stated Complaint: NAUSEA - Chief complaint Chief Complaint: Abd Pain - History obtained from History obtained from: Patient - History of Present Illness Timing - onset: How many weeks ago (1-2) Timing - duration: Weeks (has had couple of weeks of nausea and less PO intake related to early . Had IUD removed 07/10/23 and had not had period since so not sure EGA, but presume less than 8 weeks. Had cramping lower abd pain last night and today.) Timing - details: Intermittant Associated symptoms: Abdominal pain, Loss of appetite. No: Vaginal bleeding Contributing factors: Other ( between 5-8 weeks.) Similar symptoms before: Has not had sx before Recently seen: Clinic (went to [facility] for nausea and Dx . Rx Zofran.) Review of Systems Constitutional: denies: Fever, Chills, Myalgias Nose: denies: Rhinorrhea / runny nose, Congestion Throat: denies: Sore throat Respiratory: denies: Cough GI: reports: Nausea, Vomiting. denies: Diarrhea, Hematemesis PD PAST MEDICAL HISTORY - Past Medical History Past Medical History: Yes Respiratory: Asthma Endocrine/Autoimmune: Other Other Past Medical History: Graves Disease - Past Surgical History Past Surgical History: Yes HEENT: Rhinoplasty - Present Medications Home Medications: Ambulatory Orders Medication Instructions Recorded Confirmed Ondansetron Odt [Zofran] 4 mg TL Q6H PRN #10 tablet 02/06/22 09/04/23 Doxylamine Succinate [Unisom] 25 mg PO Q6H PRN #50 tablet 09/04/23 Ondansetron Odt [Zofran] 4 mg TL Q6H PRN #15 tablet 09/04/23 Pyridoxine HCl (Vitamin B6) 25 mg PO BID #60 tablet 09/04/23 [Pyridoxine HCl] dexAMETHasone [Decadron] 4 mg PO DAILY #5 tablet 09/04/23 - Allergies Allergies/Adverse Reactions: Allergies Allergy/AdvReac Type Severity Reaction Status Date / Time ibuprofen Allergy Anaphylaxis Verified 09/04/23 15:41 - Social History Does the pt smoke?: No Smoking Status: Never smoker Does the pt drink ETOH?: No Does the pt have substance abuse?: No - Immunizations Immunizations are current?: Yes PD ED PE NORMAL - Vitals Vital signs reviewed: Yes - General General: Alert and oriented X 3, No acute distress, Well developed/nourished - Cardiac Cardiac: RRR, No murmur - Respiratory Respiratory: Clear bilaterally - Abdomen Abdomen: Normal bowel sounds, Soft, Non tender, Non distended - Female Female : Deferred Results - Vitals Vitals: Oxygen O2 Source Room air - Labs Labs: Laboratory Tests 09/04/23 09/04/23 09/04/23 16:19 16:19 17:20 WBC 6.0 RBC 4.20 Hgb 10.2 L Hct 32.9 L MCV 78.3 L MCH 24.3 L MCHC 31.0 L RDW 15.6 H Plt Count 203 MPV 8.7 Neut # (Auto) 3.4 Lymph # (Auto) 1.9 [place] # (Auto) 0.5 Eos # (Auto) 0.1 Baso # (Auto) 0.0 Absolute Nucleated RBC 0.00 Nucleated RBC % 0.0 Sodium 134 L Potassium 3.8 Chloride 102 Carbon Dioxide 27 Anion Gap 5.0 L BUN 9 Creatinine 0.5 L Estimated GFR (MDRD) 145 Glucose 103 Calcium 9.1 Beta HCG, Quant 40713.8 Urine Color YELLOW Urine Clarity CLEAR Urine pH 6.0 Ur Specific [place] 1.025 Urine Protein NEGATIVE Urine Glucose (UA) NEGATIVE Urine Ketones TRACE Urine Occult Blood SMALL H Urine Nitrite NEGATIVE Urine Bilirubin NEGATIVE Urine Urobilinogen 0.2 (NORMAL) Ur Leukocyte Esterase NEGATIVE Urine RBC 0-5 Urine WBC 0-3 Ur Squamous Epith Cells FEW Squamous Urine Bacteria Rare Urine Mucus Few Strands Ur Microscopic Review INDICATED Urine Culture Comments NOT INDICATED PD Medical Decision Making - ED course Complexity details: reviewed results (OB US showing viable IUP without adnexal masses nor free fluid. Small subchorionic hemorrhage. Nausea not too bad here in ED and pt preferred not IV. . ), considered differential, d/w patient Reviewed Lab Results: Basic labs are normal. OB ultrasound showing IUP 6w4d, good FHR. small perigestational bleed. Departure - Departure Disposition: 01 Home, Self Care Clinical Impression: , Bilateral lower abdominal cramping, Subchorionic hemorrhage in first trimester, Nausea Condition: Stable Record reviewed to determine appropriate education?: Yes Prescriptions: dexAMETHasone [Decadron] 4 mg PO DAILY #5 tablet Pyridoxine HCl (Vitamin B6) [Pyridoxine HCl] 25 mg PO BID #60 tablet Doxylamine Succinate [Unisom] 25 mg PO Q6H PRN #50 tablet PRN Reason: Nausea / Vomiting Ondansetron Odt [Zofran] 4 mg TL Q6H PRN #15 tablet PRN Reason: Nausea / Vomiting Comments: Your ultrasound showed a 6-week 4-day intrauterine with a heart rate of 119 and it was in good position. The cardiac cath lab technologist preliminary said there was a small subchorionic bleed that 1 and. This is not uncommon in early as the developing embryo was trying to implant onto the wall of the uterus. Most commonly the continues on with normal development. Stay well-hydrated. For your nausea, start taking vitamin B6/pyridoxine twice daily as directed. Start with 25 mg twice daily. It can be increased to 50 mg twice daily after 5-6 days if not effective enough. Additionally doxylamine or ondansetron can be used for nausea as needed. It can take a little bit of time for the vitamin B6 to become more effective. I n the short-term Decadron steroid can be added for several days to help with the nausea as well. These are all recommendations from the ACOG guidelines for nausea in . They also recommended juan pablo or juan pablo chews for nausea. I sent your prescriptions to the [facility] pharmacy. Tylenol is fine during through all of and can be taken 500 to 650 mg every 4-6 hours if needed for pain or cramps. Forms: PCP List Discharge Date/Time: 09/04/23 18:37
[2023-09-04 16:26] LABS: BASOPHILS % (AUTO) 0.7 %; EOSINOPHILS # (AUTO) 0.1 10^3/uL (0.0-0.7); EOSINOPHILS % (AUTO) 1.8 %; HCT - HEMATOCRIT 32.9 % (37.0-47.0); HGB - HEMOGLOBIN 10.2 g/dL (12.0-16.0); LYMPHOCYTES # (AUTO) 1.9 10^3/uL (1.5-3.5); LYMPHOCYTES % (AUTO) 31.6 %; MEAN CORPUSCULAR HEMOGLOBIN 24.3 pg (27.0-31.0); MEAN CORPUSCULAR VOLUME 78.3 fL (81.0-99.0); MEAN PLATELET VOLUME 8.7 fL (7.9-10.8); MONOCYTES # (AUTO) 0.5 10^3/uL (0.0-1.0); MONOCYTES % (AUTO) 8.3 %; NEUTROPHILS # (AUTO) 3.4 10^3/uL (1.5-6.6); NEUTROPHILS % (AUTO) 57.3 %; PLT - PLATELET COUNT 203 10^3/uL (130-450); RED CELL DISTRIBUTION WIDTH 15.6 % (12.0-15.0)
[2023-09-04 16:53] LABS: CALCIUM 9.1 mg/dL (8.5-10.3); CREATININE 0.5 mg/dL (0.6-1.3); POTASSIUM 3.8 mmol/L (3.5-4.5)
[2023-09-04] MEDS ORDERED: PYRIDOXINE 100 MG TABLET PO STA (16:53)
[2023-09-04 17:28] LABS: BILIRUBIN,URINE NEGATIVE (NEGATIVE); GLUCOSE, URINE (UA) NEGATIVE (NEGATIVE); KETONES,URINE (UA) TRACE mg/dL (NEGATIVE); LEUKOCYTE ESTERASE, URINE NEGATIVE (NEGATIVE); NITRITE,URINE NEGATIVE (NEGATIVE); OCCULT BLOOD,URINE SMALL (NEGATIVE); PROTEIN,URINE NEGATIVE (NEGATIVE); UROBILINOGEN,URINE 0.2 (NORMAL) E.U./dL (NORMAL)
[2023-09-04 17:43] LABS: CLARITY,URINE CLEAR (CLEAR)
[2023-09-04 18:02] LABS: BACTERIA,URINE Rare /HPF (None Seen); MUCUS,URINE Few Strands; RBC,URINE 0-5 /HPF (0-5); SQUAMOUS EPITHELIAL CELL,UR FEW Squamous (<= Few); WBC,URINE 0-3 /HPF (0-5)
[2023-09-04 18:45] VITALS: BP 99/77; O2SAT 98
--- NOTE | 2023-09-04 18:46 | Ultrasound Report ---
PROCEDURE: OB First Trimester INDICATIONS: early preg; low abd cramping/pain OUTSIDE/PRIOR DATING DATA: Last menstrual period (LMP): Unknown. LMP-based estimated date of delivery (LORRIE): Unknown. First dating scan (date and location): 09/04/2023. Estimated date of delivery (LORRIE) from first dating scan: 04/25/2024. TECHNIQUE: Real-time scanning was performed of the fetus and maternal pelvic organs, with image documentation. COMPARISON: None. FINDINGS: Intrauterine gestational sac present. Embryo: Opal-rump length measures 0.68 cm, consistent with 6 weeks and 4 days. Heart rate: 119 bpm. Other: Perigestational bleeds on the right measuring 1.2 x 0.9 x 1.2 cm and on the left measuring 2.0 x 1.0 x 1.4 cm. Measurement variability in dating: +/- 4 weeks by LMP, +/- 7 days by mean sac diameter (use before 6 weeks gestation if crown-rump length not able to be measured), +/- 5 days by crown-rump length (6-12 weeks gestation). Maternal organs: Ovaries appear within normal limits. Right ovarian corpus luteal cyst. IMPRESSION: 1.Single live intrauterine consistent with 6 weeks and 4 days. 2.Perigestational hemorrhage as above. Findings were communicated to Dr. Hinds by the nuclear medicine chief technologist. Reviewed by: Rahul Hoyt MD on 09/04/2023 6:44 PM PST Approved by: Rahul Hoyt MD on 09/04/2023 6:44 PM PST Station ID: [id number]
== END 2023-09-04 18:37 | disposition home or self-care (01) ==
LOC: ED 15:15
DX: O20.9 Hemorrhage in early pregnancy, unspecified (principal); Z3A.01 Less than 8 weeks gestation of pregnancy; O21.0 Mild hyperemesis gravidarum; O26.891 Other specified pregnancy related conditions, first trimester; R10.31 Right lower quadrant pain; R10.32 Left lower quadrant pain
CPT/HCPCS: 36415; 76801; 80048; 81001; 84702; 85025; 99284; A9270; 81003; 87086

== ENCOUNTER 2023-11-14 17:45 | Outpatient (CLI) | payer OTHER ==
[2023-11-15 00:17] LABS: BACTERIAL VAGINOSIS DNA NEGATIVE (NEGATIVE); CANDIDA GLABRATA DNA NEGATIVE (NEGATIVE); CANDIDA GROUP DNA NEGATIVE (NEGATIVE); CANDIDA KRUSEI DNA NEGATIVE (NEGATIVE); TRICHOMONAS VAGINALIS DNA NEGATIVE (NEGATIVE)
== END 2023-11-14 18:00 | disposition home or self-care (01) ==
LOC: LAB.N 17:45
PROVIDERS: ATTEND Physician Assistant Medical
DX: N89.8 Other specified noninflammatory disorders of vagina (principal)
CPT/HCPCS: 81514; 87086

== ENCOUNTER 2024-04-04 08:24 | Emergency (ER) | payer OTHER, MEDICAID ==
[2024-04-04 08:44] VITALS: O2SAT 98
--- NOTE | 2024-04-04 09:05 | ED Physician Documentation ---
PD HPI URI - Stated complaint Stated Complaint: RANDLE, BODY ACHES, SORE THROAT - Chief complaint Chief Complaint: Heent - History obtained from History obtained from: Patient - History of Present Illness Timing - onset: How many days ago (3) Timing duration: Days (3) Timing details: Abrupt onset, Still present Associated symptoms: Fever, Chills, Nasal congestion, Sore throat, Dry cough, NVD (nausea and less intake but no vomiting. Mild diarrhea.). No: Dyspnea Contributing factors: No: Sick contact Similar symptoms before: Has not had sx before Recently seen: Clinic (she is 38 weeks with normal care in [facility].) Review of Systems Constitutional: reports: Fever, Chills, Myalgias Nose: reports: Rhinorrhea / runny nose, Congestion Throat: reports: Sore throat Respiratory: reports: Cough GI: reports: Nausea, Diarrhea. denies: Vomiting : denies: Dysuria PD PAST MEDICAL HISTORY - Past Medical History Past Medical History: Yes Respiratory: Asthma Endocrine/Autoimmune: Other Other Past Medical History: Graves - Past Surgical History Past Surgical History: Yes HEENT: Rhinoplasty - Present Medications Home Medications: Ambulatory Orders Medication Instructions Recorded Confirmed Ondansetron Odt [Zofran] 4 mg TL Q6H PRN #10 tablet 02/06/22 09/04/23 Doxylamine Succinate [Unisom] 25 mg PO Q6H PRN #50 tablet 09/04/23 Ondansetron Odt [Zofran] 4 mg TL Q6H PRN #15 tablet 09/04/23 Pyridoxine HCl (Vitamin B6) 25 mg PO BID #60 tablet 09/04/23 [Pyridoxine HCl] dexAMETHasone [Decadron] 4 mg PO DAILY #5 tablet 09/04/23 Lidocaine Viscous 2% [Xylocaine 5 ml PO Q4H PRN #100 ml 04/04/24 Viscous 2%] - Allergies Allergies/Adverse Reactions: Allergies Allergy/AdvReac Type Severity Reaction Status Date / Time ibuprofen Allergy Anaphylaxis Verified 04/04/24 08:37 - Social History Does the pt smoke?: No Smoking Status: Never smoker Does the pt drink ETOH?: No Does the pt have substance abuse?: No - Immunizations Immunizations are current?: Yes - POLST Patient has POLST: No PD ED PE NORMAL - Vitals Vital signs reviewed: Yes - General General: Alert and oriented X 3, No acute distress, Well developed/nourished - HEENT HEENT: Pharynx benign. No: Moist mucous membranes - Neck Neck: Supple, no meningeal sign, Other (left anterior adenopathy about 1 cm with mild tender. ) - Cardiac Cardiac: No murmur. No: RRR (tachycardic but regular. ) - Respiratory Respiratory: No respiratory distress, Clear bilaterally - Abdomen Abdomen: Other (gravid with uterus almost to yphoid c/w dates. Not tender in abdomen. ) Results - Vitals Vitals: Vital Signs - 24 hr 04/04/24 04/04/24 08:33 11:19 Temperature 36.4 C L 36.8 C Heart Rate 121 H 105 H Respiratory 20 16 Rate Blood Pressure 120/63 115/73 O2 Saturation 98 98 Oxygen O2 Source Room air - Labs Labs: Laboratory Tests 04/04/24 04/04/24 08:45 08:45 Nasal Adenovirus (PCR) NOT DETECTED Nasal B. parapertussis DNA (PCR) NOT DETECTED Nasal Coronavir 229E PCR NOT DETECTED Nasal Coronavir HKU1 PCR NOT DETECTED Nasal Coronavir NL63 PCR NOT DETECTED Nasal Coronavir OC43 PCR NOT DETECTED Nasal Enterovir/Rhinovir PCR NOT DETECTED Nasal Influenza B PCR NOT DETECTED Nasal Influenza A PCR NOT DETECTED Nasal Parainfluen 1 PCR NOT DETECTED Nasal Parainfluen 2 PCR NOT DETECTED Nasal Parainfluen 3 PCR NOT DETECTED Nasal Parainfluen 4 PCR NOT DETECTED Nasal RSV (PCR) NOT DETECTED Nasal B.pertussis DNA PCR NOT DETECTED Nasal C.pneumoniae (PCR) NOT DETECTED Julio Cesar Human Metapneumo PCR NOT DETECTED Nasal M.pneumoniae (PCR) NOT DETECTED Nasal SARS-CoV-2 (PCR) NOT DETECTED Group A Strep Rapid Negative PD Medical Decision Making - ED course Complexity details: reviewed results (rapid strep negative and 2/4 Centor with also URI symptoms. Will await culture result. Viral panel test negative, though could be early false negative or another viral illness. She does not appear too ill. Given IV fluids and improved generally. ), considered differential ( without uterine symptoms. Having URI sympeoms of sore throat, some cough, chills, congestion. Sounds flu-like. Strep test negative and throat not appearing strepy. viral panel negative. ), d/w patient Departure - Departure Disposition: 01 Home, Self Care Clinical Impression: Sore throat, Flu-like symptoms Upper respiratory infection Qualifiers: URI type: unspecified viral URI Qualified Code(s): J06.9 - Acute upper respiratory infection, unspecified Qualifiers: Weeks of gestation: 38 weeks Qualified Code(s): Z3A.38 - 38 weeks gestation of Condition: Stable Record reviewed to determine appropriate education?: Yes Follow-Up: CHELLY CARLSON ARNP [Primary Care Provider] - Prescriptions: Lidocaine Viscous 2% [Xylocaine Viscous 2%] 5 ml PO Q4H PRN #100 ml PRN Reason: Pain Comments: Your strep test is negative on the rapid strep. We are doing a culture and that will result in a couple of days to see if there is signs of a bacterial infection otherwise. We will call you if there are positive results. Your GLAZE GRINDER can track down the results as well on your appointed visit coming up on Friday. Your viral panel test is negative as well. Given your third day of symptoms, I would think it should be positive by now so at this point we will say not COVID, flu, RSV, rhinovirus or several other that are on the panel. There are viruses other than what is on the respiratory panel test. But at least at this point does not look like the major ones such as COVID. Your primary care could retest on Friday to see if it just was below the radar not positive yet. Meanwhile we will suggest supportive or symptomatic medications. Tylenol 500 to 650 mg 4 times daily to help with pain. For the sore throat specifically, you could use diphenhydramine/Benadryl liquid 5 to 10 mL and hold it in the back of your throat briefly before swallowing it. It does have a little bit of a numbing effect and can help dry up some of the secretions. In addition you could use anesthetic type medicines topically such as benzocaine or lidocaine. These are available [id number] with sprays or lozenges. I also wrote a prescription for a thicker liquid version that swallowed bowl to help with sore throat as well. Stay well-hydrated. Follow-up with your GLAZE GRINDER on Friday as planned. Follow- up sooner if worsening or in problems. Forms: PCP List Discharge Date/Time: 04/04/24 12:03
[2024-04-04 09:24] LABS: RAPID STREP SCREEN Negative (Negative)
[2024-04-04] MEDS: MAG HYDROX/AL HYDROX/SIMETH 30 ML UDC PO STA (09:42)
[2024-04-04] MEDS: LIDOCAINE VISCOUS 2% 15 ML UDC MM STA (09:42)
[2024-04-04] MEDS: diphenhydrAMINE ELIXIR 25 MG/10 ML UDC PO STA (09:42)
[2024-04-04] MEDS: LACTATED RINGERS 1,000 ML IV STA (10:00)
[2024-04-04 10:04] LABS: B. PARAPERTUSSIS- RESP PCR PAN NOT DETECTED; B. PERTUSSIS- RESP PCR PANEL NOT DETECTED; C. PNEUMONIAE- RESP PCR PANEL NOT DETECTED; CORONAVIRUS 229E-RESP PCR NOT DETECTED; CORONAVIRUS HKU1-RESP PCR NOT DETECTED; CORONAVIRUS NL63-RESP PCR NOT DETECTED; CORONAVIRUS OC43-RESP PCR NOT DETECTED; HUMAN METAPNEUMOVIRUS NOT DETECTED; INFLUENZA A- RESP PCR PANEL NOT DETECTED; INFLUENZA B - RESP PCR PANEL NOT DETECTED; M. PNEUMONIAE- RESP PCR PANEL NOT DETECTED; PARAINFLUENZA VIRUS 1 NOT DETECTED; PARAINFLUENZA VIRUS 2 NOT DETECTED; PARAINFLUENZA VIRUS 3 NOT DETECTED; PARAINFLUENZA VIRUS 4 NOT DETECTED; RHINOVIRUS/ENTEROVIRUS NOT DETECTED; RSV- RESP PCR PANEL NOT DETECTED; SARS-CoV-2 -RESP PCR PANEL NOT DETECTED
[2024-04-04] MEDS: ACETAMINOPHEN 500 MG TABLET PO STA (11:16)
[2024-04-04 11:20] VITALS: BP 115/73
--- NOTE | 2024-04-05 02:41 | PROCEDURE REPORT ---
- HPI Diagnosis/Indication for NST: Other (38 wks . viral syndrome, fever,) Current EDU 04/18/24 Gestation 38 Weeks and 0 Days 2 Para 1 Vital Signs Temperature 97.5 F L 04/04/24 08:33 Heart Rate 121 H 04/04/24 08:33 Respiratory Rate 20 04/04/24 08:33 Blood Pressure 120/63 04/04/24 08:33 O2 Saturation 98 04/04/24 08:33 Temperature 98.2 F 04/04/24 11:19 Heart Rate 105 H 04/04/24 11:19 Respiratory Rate 16 04/04/24 11:19 Blood Pressure 115/73 04/04/24 11:19 O2 Saturation 98 04/04/24 11:19 If not protocol: Oxygen Flow, liters/minute - NST Procedure NST Procedure Start Date 04/04/24 Start Time 09:01 Stop Time 09:22 Vibroacoustic Stimulation Used No Patient States Movement Yes - Results and Plan Findings/Impression: Reactive for of 32 weeks gestation or more. NST tracing contains at least two heart rate accelerations that are at least 15 beats per minute above the baseline rate and lasting at least 15 seconds from onset to return to baseline within a twenty minute period. baseline is tachycardic consistent with her fever.
== END 2024-04-04 12:03 | disposition home or self-care (01) ==
LOC: ED 08:24
DX: O99.513 Diseases of the respiratory system complicating pregnancy, third trimester (principal); J06.9 Acute upper respiratory infection, unspecified; J02.9 Acute pharyngitis, unspecified; Z3A.38 38 weeks gestation of pregnancy; E05.00 Thyrotoxicosis with diffuse goiter without thyrotoxic crisis or storm; Z79.899 Other long term (current) drug therapy
CPT/HCPCS: 59025; 87070; 87430; 87633; 96360; 96361; 99284; A9270; J7120

== ENCOUNTER 2024-04-07 05:19 | Outpatient (CLI) | payer MEDICAID, OTHER ==
[2024-04-07 06:23] VITALS: BP 121/69; O2SAT 99
[2024-04-07 06:58] LABS: RUPTURE OF MEMBRANES PLUS NEGATIVE (NEGATIVE)
--- NOTE | 2024-04-07 07:53 | PROVIDER PROGRESS NOTE ---
- HPI Chief Complaint: Leakage of vaginal fluid Current : Current EDU 04/20/24 Gestation 38 Weeks and 1 Days 5 Para 1 Vital Signs Temperature 98.2 F 04/07/24 05:53 Heart Rate 96 04/07/24 05:53 Respiratory Rate 24 04/07/24 05:53 Blood Pressure 121/69 04/07/24 05:53 O2 Saturation 99 04/07/24 05:53 Temperature 98.2 F 04/07/24 05:53 Heart Rate 99 04/07/24 05:53 Respiratory Rate 24 04/07/24 05:53 Blood Pressure 121/69 04/07/24 05:53 O2 Saturation 99 04/07/24 05:53 If not protocol: Oxygen Flow, liters/minute - Procedures OB Procedure Performed: NST Diagnosis/Indication for NST: Other (Disorder of amniotic fluid ruled out.) NST Procedure: NST Procedure Start Date 04/07/24 Start Time 06:05 Stop Time 06:30 Vibroacoustic Stimulation Used No Patient States Movement Yes Service Date of procedure: 04/07/24 (Read: 04/07/2024) - Plan Plan: Patient is a 28-year-old -0-3-1 at 38 weeks gestation presents today for leaking fluid. She had a URI and is coughing and leaking. She did get care at [facility] where she has her primary OB care yesterday, and was given cough drops, Mucinex. COVID, influenza, Strep negative. She also uses inhaler. She does have a sore throat but does not like the cough She was given. Nonproductive cough. No fever or chills. Good movement. Does have some contractions intermittently, but have been going on since early in . Past medical history Subclinical hypothyroidism, thyroid antibody positive -History of Graves' disease, was on methimazole from a time, but then trial off and was euthyroid. Eczema Onychomycosis Iron deficiency anemia Anxiety complications: Euthyroid, Graves' disease? Subclinical hypothyroidism?Sees endocrinology, TSH third trimester 1.29. Growth ultrasound 02/25 2095 g, 63rd percentile Echogenic cardiac focus: Normal NIPT, normal anatomy scan Asthma: Occasional albuterol use, but worsened with current use URI. No severe symptoms since childhood. OB history: -0-3-1 1. 2008, worsened 2. 2000, 3. 2013, 4. 05/04/2020, 39 weeks 1 day, male, labs Rubella: Immune RPR: Nonreactive 1 hour GTT: 103 Cell free DNA: Negative Varicella: Immune GC/CT: Negative/negative HBsAg: Negative HCV: Nonreactive HIV: Nonreactive CBC: 10.3/34.5 Blood type: A+ Antibody screen: Negative GBS: Negative Physical Exam Constitutional: alert, no acute distress, well hydrated, well developed, well nourished, appropriate dress. Cardiovascular: Regular rate and rhythm. Respiratory: no respiratory distress, clear to auscultation bilaterally, no wheezing. Abdomen: nondistended, nontender, no guarding. Psych: affect and mood appropriate, normal interaction, good eye contact. FHT: 130 beats per baseline, moderate ability, accelerations present, no decelerations. [place]: Irritable SVE: 0/0/-3 Assessment and plan 28-year-old G5, P1 at 38 weeks gestation with URI URI: -Continue current medications, does not like cough drops she was prescribed. Can try benzonatate. Will send prescription. -Encouraged hydration, antitussives, Mucinex if needed. -Respiratory exam appears benign. Gave warning signs for when to return. Leaking fluid -ROM plus negative. No signs of leaking on exam. Most likely leaking urine when coughing. Will likely improve with antitussives. 38 weeks gestation -Routine OB care. Had a visit yesterday. Follow-up with primary OB provider
== END 2024-04-07 07:58 | disposition home or self-care (01) ==
LOC: WFO 05:19 → FBP 05:24 → WFO 07:58
PROVIDERS: ATTEND Obstetrics & Gynecology
DX: O99.513 Diseases of the respiratory system complicating pregnancy, third trimester (principal); J06.9 Acute upper respiratory infection, unspecified; J45.909 Unspecified asthma, uncomplicated; Z3A.38 38 weeks gestation of pregnancy
CPT/HCPCS: 59025; 84112; 99214; 99215

== ENCOUNTER 2024-04-12 17:37 | Emergency (ER) | payer OTHER, MEDICAID ==
[2024-04-12 17:54] VITALS: BP 133/65; O2SAT 99
--- NOTE | 2024-04-12 18:07 | ED Physician Documentation ---
PD HPI HEENT - Stated complaint Stated Complaint: SORE THROAT - Chief complaint Chief Complaint: Heent - History obtained from History obtained from: Patient - Additional information Additional information: Otherwise healthy 39-week 28-year-old woman has had a little over a week of sore throat with dry cough. There is an area of her throat the particular bothers her. No fevers. PD PAST MEDICAL HISTORY - Past Medical History Past Medical History: Yes Respiratory: Asthma Endocrine/Autoimmune: Other - Past Surgical History Past Surgical History: Yes HEENT: Rhinoplasty - Present Medications Home Medications: Ambulatory Orders Medication Instructions Recorded Confirmed Ondansetron Odt [Zofran] 4 mg TL Q6H PRN #10 tablet 02/06/22 09/04/23 Doxylamine Succinate [Unisom] 25 mg PO Q6H PRN #50 tablet 09/04/23 Ondansetron Odt [Zofran] 4 mg TL Q6H PRN #15 tablet 09/04/23 Pyridoxine HCl (Vitamin B6) 25 mg PO BID #60 tablet 09/04/23 [Pyridoxine HCl] dexAMETHasone [Decadron] 4 mg PO DAILY #5 tablet 09/04/23 Lidocaine Viscous 2% [Xylocaine 5 ml PO Q4H PRN #100 ml 04/04/24 Viscous 2%] Benzonatate [Tessalon] 100 mg PO TID #30 cap 04/07/24 - Allergies Allergies/Adverse Reactions: Allergies Allergy/AdvReac Type Severity Reaction Status Date / Time ibuprofen Allergy Anaphylaxis Verified 04/12/24 17:43 - Social History Does the pt smoke?: No Smoking Status: Never smoker Does the pt drink ETOH?: No Does the pt have substance abuse?: No - Immunizations Immunizations are current?: Yes - POLST Patient has POLST: No PD ED PE NORMAL - Vitals Vital signs reviewed: Yes - General General: Alert and oriented X 3, No acute distress - HEENT HEENT: PERRL, EOMI, Other (Visualized portions of the oropharynx and phonation are normal. No anterior cervical adenopathy.) - Neck Neck: Supple, no meningeal sign, No bony TTP - Respiratory Respiratory: No respiratory distress, Clear bilaterally - Abdomen Abdomen: Other (Gravid) - Derm Derm: Normal color, Warm and dry - Extremities Extremities: No edema, No calf tenderness / cord - Neuro Neuro: Alert and oriented X 3 Results - Vitals Vitals: Vital Signs - 24 hr 04/12/24 17:43 Temperature 36.8 C Heart Rate 88 Respiratory 16 Rate Blood Pressure 133/65 H O2 Saturation 99 Oxygen O2 Source Room air PD Medical Decision Making - ED course ED course: 28-year-old with viral syndrome causing pharyngitis. Exam normal. Conservative care advised. Departure - Departure Disposition: 01 Home, Self Care Clinical Impression: Upper respiratory infection Qualifiers: URI type: unspecified viral URI Qualified Code(s): J06.9 - Acute upper respiratory infection, unspecified Condition: Good Record reviewed to determine appropriate education?: Yes Instructions: ED Pharyngitis Viral Comments: For the sore throat you can use Chloraseptic or other numbing sprays or drops. They are safe for . You can also use Pepcid as you are having some reflux and something containing dextromethorphan for the cough. Follow-up with your doctor in a week if not better. Return for new or worsening symptoms.
== END 2024-04-12 18:14 | disposition home or self-care (01) ==
LOC: ED 17:37
DX: J06.9 Acute upper respiratory infection, unspecified (principal); J02.9 Acute pharyngitis, unspecified; B97.89 Other viral agents as the cause of diseases classified elsewhere; J45.909 Unspecified asthma, uncomplicated
CPT/HCPCS: 99281; 99282

== ENCOUNTER 2024-04-14 05:01 | Outpatient (CLI) | payer OTHER, MEDICAID ==
[2024-04-14 05:56] VITALS: BP 109/68
--- NOTE | 2024-04-20 08:18 | PROCEDURE REPORT ---
- HPI Diagnosis/Indication for NST: Other (term - rule out labor, not in labor) Current EDU 04/20/24 Gestation 39 Weeks and 1 Days 5 Para 1 Vital Signs Temperature 98.1 F 04/14/24 05:23 Heart Rate 83 04/14/24 05:23 Respiratory Rate 18 04/14/24 05:23 Blood Pressure 109/68 04/14/24 05:23 Temperature 98.1 F 04/14/24 06:15 Heart Rate 83 04/14/24 06:15 Respiratory Rate 18 04/14/24 06:15 Blood Pressure 109/68 04/14/24 06:15 O2 Saturation If not protocol: Oxygen Flow, liters/minute - NST Procedure NST Procedure Start Date 04/14/24 Start Time 05:22 Stop Time 05:50 Vibroacoustic Stimulation Used No Patient States Movement Yes - Results and Plan Findings/Impression: Reactive for of 32 weeks gestation or more. NST tracing contains at least two heart rate accelerations that are at least 15 beats per minute above the baseline rate and lasting at least 15 seconds from onset to return to baseline within a twenty minute period. Plan: discharge home
== END 2024-04-14 06:15 | disposition home or self-care (01) ==
LOC: WFO 05:01 → FBP 05:02 → WFO 06:15
PROVIDERS: ATTEND Obstetrics & Gynecology
DX: O47.1 False labor at or after 37 completed weeks of gestation (principal); Z3A.39 39 weeks gestation of pregnancy
CPT/HCPCS: 59025; 99214

== ENCOUNTER 2024-05-27 15:30 | Emergency (ER) | payer OTHER, MEDICAID ==
[2024-05-27 15:44] VITALS: BP 123/57; O2SAT 100
[2024-05-27 16:33] LABS: BASOPHILS % (AUTO) 0.6 %; EOSINOPHILS # (AUTO) 0.2 10^3/uL (0.0-0.7); EOSINOPHILS % (AUTO) 2.9 %; HCT - HEMATOCRIT 36.3 % (37.0-47.0); HGB - HEMOGLOBIN 11.1 g/dL (12.0-16.0); LYMPHOCYTES # (AUTO) 2.6 10^3/uL (1.5-3.5); LYMPHOCYTES % (AUTO) 41.3 %; MEAN CORPUSCULAR HEMOGLOBIN 26.1 pg (27.0-31.0); MEAN CORPUSCULAR HGB CONC 30.6 g/dL (32.0-36.0); MEAN CORPUSCULAR VOLUME 85.2 fL (81.0-99.0); MEAN PLATELET VOLUME 8.5 fL (7.9-10.8); MONOCYTES # (AUTO) 0.5 10^3/uL (0.0-1.0); MONOCYTES % (AUTO) 7.6 %; NEUTROPHILS # (AUTO) 2.9 10^3/uL (1.5-6.6); NEUTROPHILS % (AUTO) 47.4 %; PLT - PLATELET COUNT 194 10^3/uL (130-450); RED BLOOD COUNT 4.26 10^6/uL (4.20-5.40); RED CELL DISTRIBUTION WIDTH 19.9 % (12.0-15.0); WHITE BLOOD COUNT 6.2 x10^3/uL (4.8-10.8)
[2024-05-27 16:46] LABS: ALBUMIN 4.1 g/dL (3.2-5.5); ALBUMIN/GLOBULIN RATIO 1.5 (1.0-2.2); BILIRUBIN,TOTAL 0.3 mg/dL (0.2-1.0); CALCIUM 9.2 mg/dL (8.5-10.3); CREATININE 0.7 mg/dL (0.6-1.3); POTASSIUM 3.9 mmol/L (3.5-4.5); TOTAL PROTEIN 6.8 g/dL (6.4-8.9)
--- NOTE | 2024-05-27 18:16 | ED Physician Documentation ---
History of Present Illness - Stated complaint Stated Complaint: - Chief complaint Chief Complaint: Abd Pain - Additonal information Additional information: 28-year-old female presents emergency department for chronic left lower quadrant pain. Patient said that she had a vaginal delivery in April 18 of a 9 pound baby no complications after . She said she before she got she had left upper quadrant pain after she got she felt the pain had started to resolve and then eventually she started to feel like it moved to her left lower quadrant. She also reports that after 3 weeks of she did have intercourse and was worried that maybe she injured her cervix. She has an [facility] appointment tomorrow but they are unable to get her in for an outpatient ultrasound for about 1 month out which is why she comes to the emergency department to see if she can get an emergent ultrasound. She has no nausea vomiting no fevers or chills. She also says yesterday she had some vaginal bleeding with about 4 quarter size clots and none since then. No dysuria no urgency no frequency no malodorous vaginal discharge. PD PAST MEDICAL HISTORY - Past Medical History Past Medical History: Yes Respiratory: Asthma Endocrine/Autoimmune: Other - Past Surgical History Past Surgical History: Yes HEENT: Rhinoplasty - Present Medications Home Medications: Ambulatory Orders Medication Instructions Recorded Confirmed Ondansetron Odt [Zofran] 4 mg TL Q6H PRN #10 tablet 02/06/22 09/04/23 Doxylamine Succinate [Unisom] 25 mg PO Q6H PRN #50 tablet 09/04/23 Ondansetron Odt [Zofran] 4 mg TL Q6H PRN #15 tablet 09/04/23 Pyridoxine HCl (Vitamin B6) 25 mg PO BID #60 tablet 09/04/23 [Pyridoxine HCl] dexAMETHasone [Decadron] 4 mg PO DAILY #5 tablet 09/04/23 Lidocaine Viscous 2% [Xylocaine 5 ml PO Q4H PRN #100 ml 04/04/24 Viscous 2%] Benzonatate [Tessalon] 100 mg PO TID #30 cap 04/07/24 - Allergies Allergies/Adverse Reactions: Allergies Allergy/AdvReac Type Severity Reaction Status Date / Time ibuprofen Allergy Anaphylaxis Verified 05/27/24 15:36 - Social History Does the pt smoke?: No Smoking Status: Never smoker Does the pt drink ETOH?: No Does the pt have substance abuse?: No - Immunizations Immunizations are current?: Yes - POLST Patient has POLST: No PD ED PE NORMAL - Vitals Vital signs reviewed: Yes - General General: Alert and oriented X 3, No acute distress, Well developed/nourished - HEENT HEENT: Atraumatic - Cardiac Cardiac: RRR - Respiratory Respiratory: No respiratory distress, Clear bilaterally - Abdomen Abdomen: Normal bowel sounds, Soft, Non tender, Non distended, No organomegaly - Back Back: No CVA TTP Results - Vitals Vitals: Vital Signs - 24 hr 05/27/24 15:36 Temperature 36.5 C Heart Rate 66 Respiratory 16 Rate Blood Pressure 123/57 L O2 Saturation 100 Oxygen O2 Source Room air - Labs Labs: Laboratory Tests 05/27/24 05/27/24 05/27/24 16:28 16:28 18:43 WBC 6.2 RBC 4.26 Hgb 11.1 L Hct 36.3 L MCV 85.2 MCH 26.1 L MCHC 30.6 L RDW 19.9 H Plt Count 194 MPV 8.5 Neut # (Auto) 2.9 Lymph # (Auto) 2.6 [place] # (Auto) 0.5 Eos # (Auto) 0.2 Baso # (Auto) 0.0 Absolute Nucleated RBC 0.00 Nucleated RBC % 0.0 Sodium 138 Potassium 3.9 Chloride 104 Carbon Dioxide 28 Anion Gap 6.0 BUN 15 Creatinine 0.7 Estimated GFR (MDRD) 98 Glucose 89 Calcium 9.2 Total Bilirubin 0.3 AST 15 ALT 14 Alkaline Phosphatase 53 Total Protein 6.8 Albumin 4.1 Globulin 2.7 Albumin/Globulin Ratio 1.5 Lipase 34 Urine Color YELLOW Urine Clarity CLEAR Urine pH 6.0 Ur Specific [place] 1.015 Urine Protein NEGATIVE Urine Glucose (UA) NEGATIVE Urine Ketones NEGATIVE Urine Occult Blood NEGATIVE Urine Nitrite NEGATIVE Urine Bilirubin NEGATIVE Urine Urobilinogen 0.2 (NORMAL) Ur Leukocyte Esterase NEGATIVE Ur Microscopic Review NOT INDICATED Urine Culture Comments NOT INDICATED Urine HCG, Qual 05/27/24 18:45 WBC RBC Hgb Hct MCV MCH MCHC RDW Plt Count MPV Neut # (Auto) Lymph # (Auto) [place] # (Auto) Eos # (Auto) Baso # (Auto) Absolute Nucleated RBC Nucleated RBC % Sodium Potassium Chloride Carbon Dioxide Anion Gap BUN Creatinine Estimated GFR (MDRD) Glucose Calcium Total Bilirubin AST ALT Alkaline Phosphatase Total Protein Albumin Globulin Albumin/Globulin Ratio Lipase Urine Color Urine Clarity Urine pH Ur Specific [place] Urine Protein Urine Glucose (UA) Urine Ketones Urine Occult Blood Urine Nitrite Urine Bilirubin Urine Urobilinogen Ur Leukocyte Esterase Ur Microscopic Review Urine Culture Comments Urine HCG, Qual NEGATIVE PD Medical Decision Making - ED course ED course: 28-year-old female presents emergency department for chronic left lower quadrant pain seeking emergent ultrasound that she has scheduled in 1 month. Labs are complete for further evaluation she has no significant anemia hemoglobin 11.1 which is actually improved in comparison to the last hemoglobin draw she had drawn in August which was 10.2. No leukocytosis normal kidney function normal electrolytes normal urinalysis. I did inform the patient that we could do an ultrasound but she would have to wait several hours until we were able to get around to it she has her young child with her and said that she did not want to wait that long and so opted to discharge follow-up with [facility] for further evaluation which she already has an appointment with tomorrow. Patient is safe for discharge all questions answered I have a very low suspicion that this is related to a possible ovarian torsion given how long she has had the symptoms for and how well-appearing she is.Return precautions given Departure - Departure Disposition: 01 Home, Self Care Clinical Impression: Left lower quadrant pain Instructions: ED Pelvic Pain [facility] Comments: Thank you for trusting us with your care. Please follow-up with [facility] tomorrow for further evaluation of your ongoing left lower quadrant pain. I will call you with the results of your urinalysis but keep her phone on you as it may be a late night phone call. Forms: PCP List Discharge Date/Time: 05/27/24 18:54
[2024-05-27 18:52] LABS: BILIRUBIN,URINE NEGATIVE (NEGATIVE); GLUCOSE, URINE (UA) NEGATIVE (NEGATIVE); KETONES,URINE (UA) NEGATIVE (NEGATIVE); LEUKOCYTE ESTERASE, URINE NEGATIVE (NEGATIVE); NITRITE,URINE NEGATIVE (NEGATIVE); OCCULT BLOOD,URINE NEGATIVE (NEGATIVE); PROTEIN,URINE NEGATIVE (NEGATIVE); UROBILINOGEN,URINE 0.2 (NORMAL) E.U./dL (NORMAL)
[2024-05-27 18:54] LABS: CLARITY,URINE CLEAR (CLEAR)
[2024-05-27 18:55] LABS: HCG UR QUAL NEGATIVE
== END 2024-05-27 18:54 | disposition home or self-care (01) ==
LOC: ED 15:30
DX: R10.32 Left lower quadrant pain (principal); G89.29 Other chronic pain
CPT/HCPCS: 36415; 80053; 81001; 81003; 81025; 83690; 85025; 87086; 99283